=== PATIENT | male | born 1970 | race Caucasian/White ===

== ENCOUNTER 2016-12-26 01:05 | Emergency (ER) | payer SELFPAY ==
[2016-12-26] MEDS ORDERED: Ketorolac Tromethamine 30 MG/ML VIAL ONE (01:52)
== END 2016-12-26 02:14 | disposition home or self-care (01) ==
LOC: ERS 01:05
DX: J01.00 Acute maxillary sinusitis, unspecified (principal); F17.210 Nicotine dependence, cigarettes, uncomplicated; H92.09 Otalgia, unspecified ear
CPT/HCPCS: 96372; J1885

== ENCOUNTER 2016-12-26 10:58 | Emergency (ER) | payer SELFPAY | END 2016-12-26 13:15 | disposition home or self-care (01) | LOC: ERS 10:58 | DX: H66.41 Suppurative otitis media, unspecified, right ear (principal); H72.91 Unspecified perforation of tympanic membrane, right ear; F17.210 Nicotine dependence, cigarettes, uncomplicated | CPT/HCPCS: 99282 ==

== ENCOUNTER 2018-04-07 17:27 | Emergency (ER) | payer SELFPAY ==
[2018-04-07] MEDS ORDERED: Adacel (T-DAP) 0.5 ML SYRINGE ONE (17:42)
[2018-04-07] MEDS ORDERED: Lidocaine 1% PF 5 ML VIAL ONE (18:02)
[2018-04-07] MEDS ORDERED: Bupivacaine 0.5% 10 ML VIAL ONE (18:08)
[2018-04-07] MEDS ORDERED: Bacitracin Zinc 1 Packet ONE (19:00)
== END 2018-04-07 19:02 | disposition home or self-care (01) ==
LOC: ERS 17:27
DX: S61.231A Puncture wound without foreign body of left index finger without damage to nail, initial encounter (principal); F17.210 Nicotine dependence, cigarettes, uncomplicated; W45.8XXA Other foreign body or object entering through skin, initial encounter
CPT/HCPCS: 90715; 99283; J2001; J3490

== ENCOUNTER 2022-01-31 07:13 | Emergency (ER) | payer OTHER, SELFPAY ==
[2022-01-31 07:51] LABS: #Basophils 0.1 thou/uL (0.0-0.2); #Eosinphils 0.2 thou/uL (0.0-0.7); #Lymphocytes 1.8 thou/uL (1.20-3.40); #Monocytes 0.5 thou/uL (0.11-0.59); %Basophils 0.9 % (0.0-1.0); %Lymphocytes 21.3 % (21.0-51.0); %Monocytes 6.3 % (0.0-10.0); %Neutrophils 69.4 % (42.0-75.0); Hemoglobin 15.4 g/dL (14.0-18.0); Mean Corpuscular HGB CONC 33.3 g/dL (32.0-36.0); Mean Corpuscular Hemoglobin 30.9 pg (27.0-31.0); Mean Corpuscular Volume 92.7 fl (78.0-98.0); Mean Platelet Volume 7.8 fL (7.4-10.4); Platelet Count 304 10x3/uL (130-400); RBC Distribution Width 11.6 % (11.5-14.5); Red Blood Cell (RBC) Count 4.99 mill/uL (4.70-6.10); White Blood Cell (WBC) Count 8.6 10x3/uL (4.8-10.8)
[2022-01-31 08:03] LABS: ALT (SGPT) 15 U/L (8-55); AST (SGOT) 12 U/L (5-34); Albumin 4.1 g/dL (3.5-5.0); Alkaline Phosphatase 66 U/L (40-110); Anion Gap 12 mmol/L (10-20); BUN (Urea Nitrogen) 15 mg/dL (8.4-25.7); Bilirubin, Total 0.4 mg/dL (0.2-1.2); Calc. Creatinine Clearance 0 mL/min (70-130); Calcium 8.9 mg/dL (7.8-10.44); Carbon Dioxide 23 mmol/L (22-29); Chloride 107 mmol/L (98-107); Estimated GFR 105; Globulin 2.5 g/dL (2.4-3.5); Glucose 113 mg/dL (70-105); Potassium 4.1 mmol/L (3.5-5.1); Protein, Total 6.6 g/dL (6.0-8.3); Sodium 138 mmol/L (136-145)
[2022-01-31] MEDS ORDERED: FENTANYL 50 MCG/ML 1 ML VIAL ONE (08:54)
[2022-01-31] MEDS ORDERED: Ketorolac Tromethamine 30 MG/ML VIAL ONE (08:54)
== END 2022-01-31 09:59 | disposition home or self-care (01) ==
LOC: ERS 07:13
DX: M54.12 Radiculopathy, cervical region (principal); R03.0 Elevated blood-pressure reading, without diagnosis of hypertension; F17.210 Nicotine dependence, cigarettes, uncomplicated
CPT/HCPCS: 36415; 71045; 80053; 84484; 85025; 93005; 96374; 96375; J1885; J3010

== ENCOUNTER 2022-07-20 20:09 | Emergency (ER) | payer OTHER, SELFPAY ==
[2022-07-20] MEDS ORDERED: Boostrix 0.5 ML (Tdap) VIAL (>/=7 yrs of age) ONE (20:57)
== END 2022-07-20 21:14 | disposition home or self-care (01) ==
LOC: ERS 20:09
DX: S61.231A Puncture wound without foreign body of left index finger without damage to nail, initial encounter (principal); F17.210 Nicotine dependence, cigarettes, uncomplicated; W29.8XXA Contact with other powered hand tools and household machinery, initial encounter; Z23 Encounter for immunization
CPT/HCPCS: 90471; 90715

== ENCOUNTER 2023-04-11 14:55 | Emergency (ER) | payer OTHER, SELFPAY ==
[2023-04-11 15:51] LABS: SARS-CoV-2 NAA Rapid Test DETECTED (NotDetected)
== END 2023-04-11 17:02 | disposition home or self-care (01) ==
LOC: ERS 14:55
DX: U07.1 COVID-19 (principal); J30.9 Allergic rhinitis, unspecified; J01.90 Acute sinusitis, unspecified; F17.210 Nicotine dependence, cigarettes, uncomplicated
CPT/HCPCS: 71046